=== PATIENT | female | born 1955 | race Caucasian/White ===

== ENCOUNTER 2016-10-29 18:08 | Emergency (ER) | payer OTHER ==
--- NOTE | 2016-10-29 19:24 | ED ---
Upper Extremity HPI - General Chief Complaint: Extremity Injury, Upper Stated Complaint: fall,shoulder pain Time Seen by Provider: 10/29/16 19:17 Source: patient, RN notes reviewed Mode of arrival: ambulatory Limitations: no limitations - History of Present Illness Initial Comments: 61 yo female presents to the ER with cc of right shoulder pain. Patient states she tripped on the sidewalk and fell onto her right shoulder. Patient states she's had pain with any movement of the shoulder. No pain to the elbow or the hand. Patient states there is no head injury no neck injury no other injuries she just tripped and hit it on a wall. Patient states she was concerned due to the bruising and inability to move the arm so she thought that she should be evaluated. Patient denies any recent fever, chills, shortness of breath, chest pain, back pain, abdominal pain, nausea vomiting, numbness or tingling, dysuria or hematuria, constipation or diarrhea, headaches or visual changes, or any other current symptoms. - Related Data Home Medications Medication Instructions Recorded Confirmed Ibuprofen [Advil] 400 mg PO Q8HR PRN 10/29/16 10/29/16 Previous Rx's Medication Instructions Recorded Hydrocodone/Acetaminophen [Isabel 1 each PO Q6HR PRN #20 tab 10/29/16 5-325] Allergies Allergy/AdvReac Type Severity Reaction Status Date / Time Penicillins Allergy Unknown Verified 10/29/16 19:18 cyclobenzaprine AdvReac HEADACHE Verified 10/29/16 19:18 [From Flexeril] Review of Systems ROS Statement: Those systems with pertinent positive or pertinent negative responses have been documented in the HPI. ROS Other: All systems not noted in ROS Statement are negative. Past Medical History Past Medical History: No Reported History History of Any Multi-Drug Resistant Organisms: None Reported Past Surgical History: No Surgical Hx Reported Past Psychological History: No Psychological Hx Reported Smoking Status: Current every day smoker Past Alcohol Use History: Occasional Past Drug Use History: None Reported General Exam - General Exam Comments Initial Comments: General: The patient is awake and alert, in no distress, and does not appear acutely ill. Head: Atraumatic and normocephalic Neck: The neck is supple, there is no tenderness. Cardiovascular: There is a regular rate and rhythm. No murmur, rub or gallop is appreciated. Respiratory: Lungs are clear to auscultation, respirations are non-labored, breath sounds are equal. No wheezes, stridor, rales, or rhonchi. Musculoskeletal: Sensation intact with 2+ pulses throughout the right upper extremity. Full range of motion of right wrist right elbow. Patient appears in ecchymosis on the anterior aspect of the right upper arm and patient will not move the right shoulder due to pain. No tenderness to the clavicle. Neurological: CN II-XII intact, There are no obvious motor or sensory deficits. Coordination appears grossly intact. Speech is normal. Skin: Skin is warm and dry and no rashes or lesions are noted. Psychiatric: Normal mood and affect. Limitations: no limitations Course Vital Signs 10/29/16 18:32 Temperature 97 F L Pulse Rate 104 H Respiratory 20 Rate Blood Pressure 93/70 O2 Sat by Pulse 97 Oximetry Procedures - Orthopedic Splinting/Casting Injury #1 Side: right Upper Extremity Injury Location: shoulder Upper Extremity Immobilizer: sling/shoulder immobilizer Medical Decision Making - Medical Decision Making 61-year-old female presents emergency Department chief complaint of right shoulder pain after a fall. At this time patient appears to have a right humeral head fracture. We will place the patient in a sling and give her follow -up to orthopedics. We did give her pain medication. We discussed return parameters all her questions. She stated that she understood and she is in agreement. She will be discharged. - Radiology Data Radiology results: image reviewed Interpreted by me: Interpreted by me: Right shoulder xray: 3 view, humeral head fracture, no dislocation, no bony lesions, no foreign bodies, no soft tissue damage. Waiting official radiology read. Disposition Clinical Impression: Fracture of humeral head, right, closed Disposition: HOME SELF-CARE Condition: Stable Instructions: Arm Fracture in Adults (ED) Additional Instructions: Please use medication as discussed. Please follow up with family doctor if symptoms have not improved over the next two days. Please return to the emergency room if your symptoms increase or worsen or for any other concerns. Prescriptions: Hydrocodone/Acetaminophen [Isabel 5-325] 1 each PO Q6HR PRN #20 tab PRN Reason: Pain Referrals: Gustavo Stroud MD [STAFF PHYSICIAN] - 1-2 days Time of Disposition: 19:36
--- NOTE | 2016-10-29 19:37 | XR ---
EXAMINATION TYPE: XR shoulder complete RT DATE OF EXAM: 10/29/2016 7:32 PM COMPARISON: NONE HISTORY: Fall and pain TECHNIQUE: 3 views FINDINGS: There is a comminuted impacted humeral neck fracture. There is no dislocation. There is a l arge chip fracture of the greater tuberosity. There is old healed right posterior fourth rib fracture . IMPRESSION: Acute comminuted impacted humeral neck fracture.
[2016-10-29 19:58] VITALS: BP 100/50; PULSE 92; RESP 16; TEMP 98.5
== END 2016-10-29 20:00 | disposition home or self-care (01) ==
LOC: EC 18:08
DX: S42.251A Displaced fracture of greater tuberosity of right humerus, initial encounter for closed fracture (principal); F17.200 Nicotine dependence, unspecified, uncomplicated; Z88.0 Allergy status to penicillin; Z88.8 Allergy status to other drugs, medicaments and biological substances; W18.09XA Striking against other object with subsequent fall, initial encounter; Y92.019 Unspecified place in single-family (private) house as the place of occurrence of the external cause
CPT/HCPCS: 99283

== ENCOUNTER 2017-01-14 13:26 | Emergency (ER) | payer OTHER ==
[2017-01-14 13:37] VITALS: RESP 18
[2017-01-14] MEDS ORDERED: HYDROcodone/APAP 5-325MG 1 EACH TAB PO STA (13:59)
[2017-01-14] MEDS ORDERED: DIPH,PERTUS(ACELL)TETVAC-LF 0.5 ML VIAL IM ONE (14:04)
--- NOTE | 2017-01-14 14:09 | ED ---
Lower Extremity Injury HPI - General Chief Complaint: Extremity Injury, Lower Stated Complaint: RT LEG INJURY Time Seen by Provider: 01/14/17 13:44 Source: patient Mode of arrival: EMS Limitations: no limitations - History of Present Illness Initial Comments: 61-year-old female patient presents to emergency department today for evaluation of right knee pain. Patient states one to 2 hours ago she was walking down the street when a medium-size dog ran up and knocked her over. Patient states that she did fall onto her side, causing injury to her right knee. Patient states she does have abrasions in other places however these areas are not painful. She states that it hurts to move the leg at all. She denies any numbness or tingling to the lower extremities. Denies hitting her head or losing consciousness. Patient denies any headache, neck pain, back pain , chest pain, shortness of breath, dizziness, weakness, abdominal pain, nausea, vomiting, or difficulties with bowel movements or urination. She does admit to drinking alcohol today. Patient is unsure when her last tetanus shot was. - Related Data Home Medications Medication Instructions Recorded Confirmed Ibuprofen [Advil] 400 mg PO Q8HR PRN 10/29/16 01/14/17 Previous Rx's Medication Instructions Recorded Acetaminophen-Codeine 300-30mg 1 tab PO Q6H PRN #15 tablet 01/14/17 [Tylenol #3] Allergies Allergy/AdvReac Type Severity Reaction Status Date / Time Penicillins Allergy Unknown Verified 01/14/17 13:34 cyclobenzaprine AdvReac HEADACHE Verified 01/14/17 13:34 [From Flexeril] Review of Systems ROS Statement: Those systems with pertinent positive or pertinent negative responses have been documented in the HPI. ROS Other: All systems not noted in ROS Statement are negative. Past Medical History Past Medical History: No Reported History History of Any Multi-Drug Resistant Organisms: None Reported Past Surgical History: No Surgical Hx Reported Past Psychological History: No Psychological Hx Reported Smoking Status: Current every day smoker Past Alcohol Use History: Occasional Past Drug Use History: None Reported General Exam Limitations: no limitations General appearance: alert, in no apparent distress Head exam: Present: atraumatic, normocephalic, normal inspection Eye exam: Present: normal appearance, PERRL, EOMI. Absent: scleral icterus, conjunctival injection, periorbital swelling Pupils: Present: normal accommodation ENT exam: Present: normal exam, normal oropharynx, mucous membranes moist Neck exam: Present: normal inspection, full ROM, other (No tenderness, step-off , or deformity noted to firm midline palpation of the posterior cervical spine. Full range of motion without pain or limitation.). Absent: tenderness, meningismus, lymphadenopathy Respiratory exam: Present: normal lung sounds bilaterally. Absent: respiratory distress, wheezes, rales, rhonchi, stridor Cardiovascular Exam: Present: regular rate, normal rhythm, normal heart sounds. Absent: systolic murmur, diastolic murmur, rubs, gallop, clicks GI/Abdominal exam: Present: soft, normal bowel sounds. Absent: distended, tenderness, guarding, rebound, rigid Extremities exam: Present: full ROM, tenderness (Noted above the right knee over the distal femur.), normal capillary refill, other (Patient does have range of motion, however patient's her to have significant pain at 90 flexion and refused to go any further. Skin to the right leg is pink, warm, and dry. Cap refill to the right toes less than 3 seconds. Left anterior knee over the patella does exhibit a superficial abrasion with no bleeding and no tenderness.) . Absent: normal inspection, pedal edema, joint swelling, calf tenderness Back exam: Present: normal inspection, full ROM, other (No tenderness, step-off , or deformity noted to firm midline palpation of the thoracic and lumbar spines. Full range of motion without pain or limitation.). Absent: tenderness , CVA tenderness (R), CVA tenderness (L), vertebral tenderness Neurological exam: Present: alert, oriented X3, CN II-XII intact Psychiatric exam: Present: normal affect, normal mood Skin exam: Present: warm, dry, intact, normal color. Absent: rash Course Vital Signs 01/14/17 01/14/17 13:34 16:36 Temperature 98.2 F 98.1 F Pulse Rate 81 86 Respiratory 18 18 Rate Blood Pressure 98/56 98/57 O2 Sat by Pulse 96 98 Oximetry Medical Decision Making - Medical Decision Making 61-year-old female patient presented for evaluation of right knee injury after being pushed over by a dog. Physical exam is unremarkable other than some right knee swelling and tenderness. Patient was neurologically intact. X-ray did show a depressed tibial plateau fracture. Did speak to Bird Barth PA-c from [facility] who recommended obtaining computed tomography scan. Computed tomography scan was obtained and did show a mildly displaced comminuted fracture of the tibial plateau, as well as possible hemarthrosis behind the patella. Spoke to Bird once again after the computed tomography scan was completed, he states that they are going to attempt conservative management and recommended discharge home. Patient was placed in a knee immobilizer, given prescription for crutches, and instructed to call [facility] for an appointment in the morning. Patient instructed to keep right leg nonweightbearing. Instructed to follow up for recheck with her primary care physician one to 2 days. Instructed to return here immediately for any new, worsening, or concerning symptoms. Patient verbalized understanding and agreed with this plan. - Radiology Data Radiology results: report reviewed, image reviewed 3 views of the right knee were obtained and showed a tibial plateau fracture with depression. There is associated soft tissue swelling. Bone mineralization is reduced. There are vascular calcifications. Hemarthrosis is suspected in the suprapatellar region. Impression by Dr. Isabel shows tibial plateau fracture. CT of the right knee shows comminuted tibial plateau fracture is noted laterally with depression and minimal displacement of the fracture fragments. Hemarthrosis suspected within the knee joint, semimembranosus gastrocnemius cyst is present. No dislocation. Bone mineralization is reduced. Impression by Dr. Isabel reports comminuted tibial plateau fracture with depression. Disposition Clinical Impression: Fracture of right tibial plateau Disposition: HOME SELF-CARE Condition: Good Instructions: Leg Fracture (ED), Knee Immobilizer (ED), Non Weight Bearing Activity (ED) Additional Instructions: To not bear weight on the right leg. Keep knee immobilizer and place. Use crutches for ambulation. Call orthopedic's office tomorrow to make an appointment. Return immediately for any new, worsening, or concerning symptoms. Prescriptions: Acetaminophen-Codeine 300-30mg [Tylenol #3] 1 tab PO Q6H PRN #15 tablet PRN Reason: Pain Referrals: None,Stated [Primary Care Provider] - 1-2 days Time of Disposition: 16:11
--- NOTE | 2017-01-14 14:18 | XR ---
Right knee HISTORY: Trauma and pain 3 views of the right knee There is a tibial plateau fracture with depression. There is associated soft tissue swelling. Bone mi neralization is reduced. There are vascular calcifications. Hemarthrosis is suspected in the suprapat ellar region. IMPRESSION: Tibial plateau fracture
--- NOTE | 2017-01-14 15:40 | CT ---
EXAMINATION TYPE: CT knee RT wo con DATE OF EXAM: 01/14/2017 COMPARISON: Plain film same date HISTORY: Rt knee injury, knee pain CT DLP: 396.6 mGycm Automated exposure control for dose reduction was used. FINDINGS: Helical acquisition through the knee. Coronal and sagittal reconstructions. Comminuted tibial plateau fracture is noted laterally with depression and minimal displacement of the fracture fragments. Hemarthrosis suspected within the knee joint, semimembranosus gastrocnemius cyst is present. No dislocation. Bone mineralization is reduced. IMPRESSION: COMMINUTED TIBIAL PLATEAU FRACTURE WITH DEPRESSION.
[2017-01-14 16:37] VITALS: BP 98/57; PULSE 86; TEMP 98.1
== END 2017-01-14 16:37 | disposition home or self-care (01) ==
LOC: EC 13:26
DX: S82.141A Displaced bicondylar fracture of right tibia, initial encounter for closed fracture (principal); F17.200 Nicotine dependence, unspecified, uncomplicated; Z88.0 Allergy status to penicillin; Z88.8 Allergy status to other drugs, medicaments and biological substances; W54.1XXA Struck by dog, initial encounter; Y93.01 Activity, walking, marching and hiking; Y92.410 Unspecified street and highway as the place of occurrence of the external cause
CPT/HCPCS: 73562; 73700; 99284; L1830

== ENCOUNTER 2017-01-15 12:44 | Emergency (ER) | payer OTHER ==
[2017-01-15] MEDS ORDERED: ONDANSETRON 4 MG TAB PO STA (15:22)
[2017-01-15] MEDS ORDERED: HYDROcodone/APAP 10-325MG 1 EACH TAB PO ONE (15:23)
[2017-01-15] MEDS ORDERED: ONDANSETRON ODT 4 MG TAB PO STA (15:33)
[2017-01-15] MEDS ORDERED: ONDANSETRON 4 MG ODT STARTER PACK 2 TAB BTL PO STA (17:00)
--- NOTE | 2017-01-15 17:00 | ED ---
Lower Extremity Injury HPI - General Chief Complaint: Extremity Injury, Lower Stated Complaint: Right Leg Pain Time Seen by Provider: 01/15/17 14:45 Source: patient Mode of arrival: wheelchair Limitations: no limitations - History of Present Illness Initial Comments: 61-year-old female who presented to this facility yesterday for right knee pain resulting in diagnosis of right tibial plateau fracture present for evaluation of continued pain. She states that during this time she has taken off her knee immobilizer due to it being too tight. She has had continued pain and has been able to keep down her medications due to nausea from her pain. She denies any recurrent injury. When asked if she had made a follow-up appointment with orthopedic surgeon as she was instructed to she states that she had forgotten and it just come to the ER. She denies chest pain, shortness breath, fevers, chills, abdominal pain. - Related Data Home Medications Medication Instructions Recorded Confirmed Ibuprofen [Advil] 400 mg PO Q8HR PRN 10/29/16 01/15/17 Ibuprofen [Motrin] 600 mg PO Q8HR PRN 01/15/17 01/15/17 Previous Rx's Medication Instructions Recorded Acetaminophen-Codeine 300-30mg 1 tab PO Q6H PRN #15 tablet 01/14/17 [Tylenol #3] Allergies Allergy/AdvReac Type Severity Reaction Status Date / Time Penicillins Allergy Unknown Verified 01/15/17 14:36 cyclobenzaprine AdvReac HEADACHE Verified 01/15/17 14:36 [From Flexeril] Review of Systems ROS Statement: Those systems with pertinent positive or pertinent negative responses have been documented in the HPI. ROS Other: All systems not noted in ROS Statement are negative. Constitutional: Denies: fever, chills Eyes: Denies: eye pain, eye discharge ENT: Denies: ear pain, throat pain Respiratory: Denies: cough, dyspnea Cardiovascular: Denies: chest pain, palpitations Endocrine: Denies: fatigue, heat or cold intolerance Gastrointestinal: Denies: abdominal pain, nausea, vomiting Genitourinary: Denies: urgency, dysuria Musculoskeletal: Reports: arthralgia (Right knee without decreased range of motion, swelling, or erythema.). Denies: back pain Skin: Denies: rash, lesions Neurological: Denies: headache, weakness Psychiatric: Denies: anxiety, depression Hematological/Lymphatic: Denies: easy bleeding, easy bruising Past Medical History Past Medical History: No Reported History History of Any Multi-Drug Resistant Organisms: None Reported Past Surgical History: No Surgical Hx Reported Past Psychological History: No Psychological Hx Reported Smoking Status: Current every day smoker Past Alcohol Use History: Occasional Past Drug Use History: None Reported General Exam Limitations: no limitations General appearance: alert, in distress Head exam: Present: atraumatic, normocephalic, normal inspection Eye exam: Present: normal appearance, PERRL, EOMI. Absent: scleral icterus, conjunctival injection, periorbital swelling ENT exam: Present: normal exam, mucous membranes moist Neck exam: Present: normal inspection. Absent: tenderness, meningismus, lymphadenopathy Respiratory exam: Present: normal lung sounds bilaterally. Absent: respiratory distress, wheezes, rales, rhonchi, stridor Cardiovascular Exam: Present: regular rate, normal rhythm, normal heart sounds. Absent: systolic murmur, diastolic murmur, rubs, gallop, clicks GI/Abdominal exam: Present: soft, normal bowel sounds. Absent: distended, tenderness, guarding, rebound, rigid Rectal exam: Present: deferred Extremities exam: Present: full ROM, tenderness (Right knee tenderness without decreased range of motion, erythema, swelling, or overlying discoloration.), normal capillary refill. Absent: pedal edema, joint swelling, calf tenderness Back exam: Present: normal inspection Neurological exam: Present: alert, oriented X3, CN II-XII intact Psychiatric exam: Present: normal affect, normal mood Skin exam: Present: warm, dry, intact, normal color. Absent: rash Course Vital Signs 01/15/17 01/15/17 12:49 17:10 Temperature 97.0 F L 98.0 F Pulse Rate 84 88 Respiratory 18 20 Rate Blood Pressure 120/73 118/68 O2 Sat by Pulse 93 L 98 Oximetry Medical Decision Making - Medical Decision Making 61-year-old female presenting for evaluation of continued right knee pain following tibial plateau fracture yesterday. This is diagnosed with pelvic x-ray and CT and she was given follow-up instructions with an orthopedic surgeon for today. She states she did not call the orthopedic surgeon today and just came to the ER for further treatment and evaluation. There are no significant abnormalities noted to the right knee other than tenderness to palpation. She was given Zofran for her symptoms and then oral pain control. By mouth challenge is tolerated well and she was advised to return home, place the knee immobilizer back on her leg, and follow-up with her orthopedic surgeon. The on-call orthopedic surgeon from yesterday was contacted and updated on her situation. His banquet prep cook stated that the patient would be called in the morning to schedule an appointment for the same day. The patient was updated on this conversation and agreed with this plan of care. She was discharged with instructions to continue taking her pain control and a prescription of Zofran were also be provided so that she could tolerate the nausea of her medications. The patient acknowledged an understanding of all information provided and agreed with this plan of care. Disposition Clinical Impression: Knee pain, acute Disposition: HOME SELF-CARE Condition: Stable Instructions: Leg Fracture (ED) Additional Instructions: Please use medication as discussed. Please follow up with family doctor if symptoms have not improved over the next two days. Please return to the emergency room if your symptoms increase or worsen or for any other concerns. Referrals: None,Stated [Primary Care Provider] - 1-2 days Mendy Jaramillo DO [Doctor of Osteopathic Medicine] - 1-2 days Brandon Lauren DO [Doctor of Osteopathic Medicine] - 1-2 days Time of Disposition: 17:00
[2017-01-15 17:12] VITALS: BP 118/68; PULSE 88; RESP 20; TEMP 98
== END 2017-01-15 17:49 | disposition home or self-care (01) ==
LOC: EC 12:44
DX: M25.561 Pain in right knee (principal); R11.0 Nausea; F17.200 Nicotine dependence, unspecified, uncomplicated; Z53.8 Procedure and treatment not carried out for other reasons; Z88.0 Allergy status to penicillin; Z88.8 Allergy status to other drugs, medicaments and biological substances
CPT/HCPCS: 99283 ×2; S0119

== ENCOUNTER → 2017-07-23 | Outpatient (CLI) | payer OTHER ==
--- NOTE | 2017-07-23 12:52 | ECHOF ---
Referral Reason:Heart Murmur R01.1 MEASUREMENTS -------- HEIGHT: 165.1 cm WEIGHT: 44.5 kg BP: RVIDd: 2.7 cm (< 3.3) IVSd: 1.3 cm (0.6 - 1.1) LVIDd: 2.8 cm (3.9 - 5.3) LVPWd: 1.0 cm (0.6 - 1.1) IVSs: 1.4 cm LVIDs: 1.8 cm LVPWs: 1.2 cm LAESV Index (A-L): 17.15 ml/m Ao Diam: 2.3 cm (2.0 - 3.7) LA Diam: 2.9 cm (2.7 - 3.8) MV E Blayne: 0.72 m/s MV DecT: 373 ms MV A Blayne: 0.99 m/s MV E/A Ratio: 0.73 AV maxP.16 mmHg AV meanP.09 mmHg RAP: 5.00 mmHg RVSP: 14.07 mmHg FINDINGS -------- Sinus rhythm. This was a technically adequate study. The left ventricular size is normal. There is mild concentric left ventricular hypertrophy. Overa ll left ventricular systolic function is normal with, an EF between 55 - 60 %. The right ventricle is normal in size. The left atrial size is normal. The right atrial size is normal. There is moderate aortic valve sclerosis. There is mild aortic stenosis present. Peak/mean gradie nt across the Aortic Valve is 20.16mmHg / 10.09mmHg. Aov is stenotic with decrease opening. The mitral valve leaflets are mildly thickened. Mild mitral regurgitation is present. Mild tricuspid regurgitation present. There is no evidence of pulmonary hypertension. The right v entricular systolic pressure, as measured by Doppler, is 14.07mmHg. There is no pulmonic regurgitation present. The aortic root size is normal. There is no pericardial effusion. CONCLUSIONS -------- 1. Sinus rhythm. 2. This was a technically adequate study. 3. The left ventricular size is normal. 4. There is mild concentric left ventricular hypertrophy. 5. Overall left ventricular systolic function is normal with, an EF between 55 - 60 %. 6. The left atrial size is normal. 7. There is moderate aortic valve sclerosis. 8. There is mild aortic stenosis present. 9. Peak/mean gradient across the Aortic Valve is 20.16mmHg / 10.09mmHg. 10. Aov is stenotic with decrease opening. 11. The mitral valve leaflets are mildly thickened. 12. Mild mitral regurgitation is present. 13. Mild tricuspid regurgitation present. 14. There is no evidence of pulmonary hypertension. 15. There is no pulmonic regurgitation present. 16. The aortic root size is normal. 17. There is no pericardial effusion. MANGA ARTIST: Dariela Antoine RDCS
== END | disposition home or self-care (01) ==
LOC: RADECHMAIN 11:29
PROVIDERS: ATTEND Family Medicine
DX: I08.1 Rheumatic disorders of both mitral and tricuspid valves (principal)
CPT/HCPCS: 93306